=== PATIENT | female | born 1985 | race Caucasian/White ===

== ENCOUNTER 2018-07-31 15:32 | Outpatient (CLI) | payer OTHER | END 2018-07-31 15:33 | disposition home or self-care (01) | LOC: C.CTH 15:32 | DX: N63.32 Unspecified lump in axillary tail of the left breast (principal) ==

== ENCOUNTER 2018-08-13 08:03 | Day surgery (SDC) | payer OTHER ==
[2018-08-13 08:15] VITALS: BMI 27.5
[2018-08-13 08:35] VITALS: O2SAT 100
--- NOTE | 2018-08-13 10:41 | CP.SDSHP ---
Same Day Surgery H & P - History Proposed Procedure: EGD Pre-Op Diagnosis: SEE NOTES - Previous Medical/Surgical History Misc: Other Pain: 4.Moderate Pain - Allergies Allergies: Allergies No Known Allergies Allergy (Verified 11/20/15 18:20) - Physical Exam General Appearance: N Vital Signs: Vital Signs 08/13/18 08:17 Temperature 96.2 F L Pulse Rate 82 Respiratory 18 Rate Blood Pressure 126/77 O2 Sat by Pulse 100 Oximetry Mental Status: Alert & Oriented x3 Neuro: WNL Heart: WNL Lungs: WNL GI: Other - {Optional Preform as Required} Breast: WNL Abdomen: Other Rectal: Other Integument: WNL : WNL Ortho: WNL ENT: WNL - Impression Pt. Evaluated Today:Candidate for Anesthesia & Procedure: Yes - Date & Time Time: 10:41 Short Stay Discharge - Short Stay Discharge Admitting Diagnosis/Reason for Visit: DYSPEPSIA Disposition: HOME/ ROUTINE
[2018-08-13] MEDS ORDERED: Propofol 10 mg/ml Inj (20 ML) ONE (10:43)
[2018-08-13] MEDS ORDERED: Pantoprazole 40 mg EC Tab PO ONE (11:30)
[2018-08-13] MEDS ORDERED: Belladonna-Phenobarbital PO ONE (11:30)
[2018-08-13 12:57] VITALS: BP 108/62; PULSE 54; RESP 16
[2018-08-13 13:09] VITALS: TEMP 98.9
== END 2018-08-13 11:55 | disposition home or self-care (01) ==
LOC: C.ENDO 08:03
PROVIDERS: ATTEND Specialist
DX: K29.50 Unspecified chronic gastritis without bleeding (principal); K30 Functional dyspepsia
CPT/HCPCS: 43239; 84703; 88305; 88342; J2001; J2704; J2765